=== PATIENT | male | born 1945 | race Caucasian/White ===

== ENCOUNTER → 2018-10-09 13:51 | Outpatient (CLI) | payer OTHER, SELFPAY | PROVIDERS: Family Provider Family Medicine; PCP Family Medicine; Visit Provider Urology | DX: R97.20 Elevated prostate specific antigen [PSA] (principal) | CPT/HCPCS: 36415; 84153 ==

== ENCOUNTER → 2018-11-14 11:08 | Outpatient (CLI) | payer OTHER, SELFPAY ==
--- NOTE | 2018-11-14 11:09 | DI.US.S_ITS ---
PROCEDURE: US ABD AORTA ANEURYSM SCREEN INDICATIONS: FORMER SMOKER TECHNIQUE: Real time scanning was performed of the aorta and iliac arteries, with image documentation. COMPARISON: None. FINDINGS: Aorta: Proximal aortic diameter measures 2.6 cm. Mid-aorta measures 1.7 cm. Distal aortic diameter is 1.6 cm. Iliac arteries: Right common iliac artery measures 1.0 cm. Left common iliac artery measures 1.0 cm. IMPRESSION: 1. Mild ectasia of the proximal abdominal aorta. 5 your sonographic surveillance recommended. 2. No ectasia or aneurysmal dilatation of iliac arteries. Dictated by: Serena Mott M.D. on 11/14/2018 at 13:22 Approved by: Serena Mott M.D. on 11/14/2018 at 13:24
== END ==
PROVIDERS: Family Provider Family Medicine; PCP Family Medicine; Visit Provider Student in an Organized Health Care Education/Training Program
DX: Z13.6 Encounter for screening for cardiovascular disorders (principal); I77.811 Abdominal aortic ectasia; Z87.891 Personal history of nicotine dependence
CPT/HCPCS: 76706

== ENCOUNTER → 2019-10-15 07:54 | Outpatient (CLI) | payer MEDICARE, SELFPAY ==
[2019-10-15 10:13] LABS: Blood Urea Nitrogen 28 mg/dL (9-20); Calcium 9.9 mg/dL (8.4-10.2); Carbon Dioxide 32 mmol/L (22-32); Chloride 99 mmol/L (98-107); Estimated Glomerular Filt Rate > 60.0 mL/min (>60); Glucose 128 mg/dL (80-110); HEMOLYSIS < 15 (0-50); Potassium 4.1 mmol/L (3.4-5.1); Sodium 139 mmol/L (137-145)
[2019-10-15 10:28] LABS: Vitamin D 25 Hydroxy (D3) 37.2 ng/mL (30.0-100.0)
[2019-10-15 10:44] LABS: Prostate Specific Antigen 2.14 ng/mL (0.10-4.00)
== END ==
PROVIDERS: PCP Student in an Organized Health Care Education/Training Program; Visit Provider Urology
DX: R97.20 Elevated prostate specific antigen [PSA] (principal); I10 Essential (primary) hypertension; R73.9 Hyperglycemia, unspecified; E55.9 Vitamin D deficiency, unspecified
CPT/HCPCS: 36415; 80048; 82306; 84153

== ENCOUNTER → 2021-02-21 15:22 | Outpatient (CLI) | payer MEDICARE, SELFPAY ==
[2021-02-21 17:25] LABS: HEMOLYSIS < 15 (0-50); Potassium 3.7 mmol/L (3.4-5.1)
[2021-02-21 17:26] LABS: BUN Creatinine Ratio 29.9 (6-22); Blood Urea Nitrogen 26 mg/dL (9-20); Calcium 9.8 mg/dL (8.4-10.2); Carbon Dioxide 30 mmol/L (22-32); Chloride 101 mmol/L (98-107); Estimated Glomerular Filt Rate > 60.0 mL/min (>60); Glucose 110 mg/dL (80-110); Sodium 138 mmol/L (137-145)
== END ==
PROVIDERS: PCP Student in an Organized Health Care Education/Training Program; Referring Provider Urology; Visit Provider Urology
DX: R97.20 Elevated prostate specific antigen [PSA] (principal); I10 Essential (primary) hypertension
CPT/HCPCS: 36415; 80048; 84153

== ENCOUNTER → 2022-05-10 07:28 | Outpatient (CLI) | payer MEDICARE, SELFPAY ==
[2022-05-10 09:45] LABS: BUN Creatinine Ratio 28.4 (6-22); Blood Urea Nitrogen 25 mg/dL (9-20); Calcium 9.4 mg/dL (8.4-10.2); Carbon Dioxide 31 mmol/L (22-32); Chloride 99 mmol/L (98-107); Cholesterol 160 mg/dL (140-199); Estimated Glomerular Filt Rate > 60 mL/min (>60); Glucose 154 mg/dL (80-110); HDL Cholesterol 48 mg/dL (40-60); HEMOLYSIS < 15 (0-50); LDL Cholesterol Calculated 97 mg/dL (<100); Potassium 3.8 mmol/L (3.4-5.1); Sodium 137 mmol/L (137-145); Triglycerides 73 mg/dL (35-150)
[2022-05-10 10:15] LABS: Prostate Specific Antigen 1.83 ng/mL (0.10-4.00)
== END ==
PROVIDERS: PCP Student in an Organized Health Care Education/Training Program; Referring Provider Student in an Organized Health Care Education/Training Program; Visit Provider Student in an Organized Health Care Education/Training Program
DX: E78.00 Pure hypercholesterolemia, unspecified (principal); R97.20 Elevated prostate specific antigen [PSA]; I10 Essential (primary) hypertension
CPT/HCPCS: 36415; 80048; 80061; 84153

== ENCOUNTER → 2024-07-02 07:39 | Outpatient (CLI) | payer MEDICARE, SELFPAY ==
--- NOTE | 2024-07-02 07:41 | DI.ECHO.S_ITS ---
[facility] : : [id number] : [place] : : [id number] : : Phone: [phone] Echocardiogram Report + + :Name: NOEL GARCIA Study Date: 07/02/2024 Height: 69 in : :Hospital ReadingLocation: Weight: 172 lb : : Gender: Male BSA: 1.9 m2 : :: 1945 Age: 79 yrs BP: 142/72 mmHg: :Reason For Study: Chest pain : :Ordering Physician: ROMERO, : :MISTY Performed By: Rosalinda Lehman : :Referring: MISTY JASSO : + + Interpretation Summary The left ventricle is normal in size. The left ventricular ejection fraction is normal. The ejection fraction is estimated to be 60-65%. The right ventricle is normal in size and function. The aortic valve is moderately calcified. There is moderately reduced leaflet mobility. The peak aortic velocity is 2.7 m/sec. The aortic valve mean gradient is 16 mmHg. The calculated aortic valve area is 1.5 cm2. sev ratio: 0.33 There is mild to moderate aortic stenosis. There is mild to moderate aortic regurgitation. There is aortic root sclerosis/calcification. Procedure: A two-dimensional transthoracic echocardiogram with color flow and Doppler was performed. The study quality was technically adequate. There is no prior echocardiogram noted for this patient. The heart rate ranged between 70-73 bpm during the study. The patient was in normal sinus rhythm during the exam. Left Ventricle: The left ventricle is normal in size. Proximal septal thickening is noted. There is no thrombus. The ejection fraction is estimated to be 60-65%. The left ventricular ejection fraction is normal. There are no focal wall motion abnormalities. Diastolic parameters suggest a relaxation abnormality of the left ventricle, consistent with probable normal filling pressures. Right Ventricle: The right ventricle is normal in size and function. Atria: The left atrial size is normal. Right atrial size is normal. The interatrial septum grossly appears intact with no obvious evidence for an atrial septal defect. Lipomatous hypertrophy of the interatrial septum is noted. Mitral Valve: The mitral valve leaflets appear mildly thickened, but open well. There is mild to moderate mitral annular calcification. There is mild mitral regurgitation. Aortic Valve: The aortic valve is moderately calcified. There is moderately reduced leaflet mobility. The aortic valve is not well visualized. The aortic valve area is 1.5 centimeters squared by planimetry. The calculated aortic valve area is 1.5 cm2. The peak aortic velocity is 2.7 m/sec. The aortic valve mean gradient is 16 mmHg. There is mild to moderate aortic stenosis. There is mild to moderate aortic regurgitation. Tricuspid Valve: The tricuspid valve leaflets are thin and pliable. The right ventricular systolic pressure is estimated to be at least 27 mmHg based on an estimated right atrial pressure of 3 mm Hg. There is trace tricuspid regurgitation. Pulmonic Valve: The pulmonic valve leaflets are thin and pliable; valve motion is normal. There is no pulmonic valvular regurgitation. Great Vessels: The aortic root is normal size. There is aortic root sclerosis/calcification. The ascending aorta is normal in size. The aortic arch is normal in size. The IVC is of normal diameter and collapses greater than 50% with a sniff. This suggests a low right atrial pressure of 3 mm Hg. Pericardium/ Pleura There is no pericardial effusion. There is no pleural effusion. MMode/2D Measurements & Calculations LVIDd: 5.1 cm LVOT diam: 2.5 cm LVIDs: 2.5 cm Ao root diam: 3.7 cm FS: 50.8 % asc Aorta Diam: 3.5 cm EPSS: 0.81 cm Ao Arch Diam (Prox Trans): 3.0 cm IVSd: 0.97 cm LVPWd: 0.83 cm LV castrejon. diameter/BSA (cm/m^2): 2.6 LV sys. diameter/BSA (cm/m^2): 1.3 LA A2 area: 19.0 cm2 RA long axis: 5.0 cm LA A4 area: 21.0 cm2 RA area: 12.0 cm2 LA length (vol): 5.9 cm RA vol: 24.6 ml LA vol: 57.6 ml RA : 12.7 ml/m2 LA vol index: 29.7 ml/m2 IVC diam: 2.1 cm RVD1 (basal): 4.1 cm TAPSE: 2.2 cm Doppler Measurements & Calculations Ao V2 max: 272.4 cm/sec LVOT Max Pablo: 84.9 cm/sec Ao V2 mean: 187.2 cm/sec LV V1 max P.9 mmHg Ao max P.7 mmHg LV V1 VTI: 20.3 cm Ao mean P.3 mmHg BRANDT(I,D): 1.6 cm2 Ao V2 VTI: 61.5 cm BRANDT(V,D): 1.5 cm2 sev ratio: 0.33 BRANDT indexed to BSA (cm^2/m^2): 0.84 AI P1/2t: 482.3 msec AI dec slope: 204.9 cm/sec2 MV E max pablo: 71.9 cm/sec TR max pablo: 243.0 cm/sec MV A max pablo: 102.8 cm/sec TR max P.6 mmHg MV E/A: 0.70 PA V2 max: 76.6 cm/sec Med Peak E' Pablo: 4.9 cm/sec PA V2 mean: 54.7 cm/sec E/E' med: 14.6 PA mean P.3 mmHg Lat Peak E' Pablo: 4.2 cm/sec PA pr(Accel): 1.9 mmHg E/E' lat: 17.1 E/e' average: 15.8 MV dec time: 0.24 sec SV(LVOT): 99.9 ml Reading Physician:02:14 PM
--- NOTE | 2024-07-02 07:42 | DI.RAD.S_ITS ---
PROCEDURE: XR CHEST 2V INDICATIONS: CHEST PAIN WITH BREATHING TECHNIQUE: 2 views of the chest were acquired. COMPARISON: [facility], , CHEST 2 VIEW, 01/21/2017, 9:58. FINDINGS: Mild bilateral perihilar and lower lobe peribronchial thickening, some of which may be related expiratory result with mild bibasilar subsegmental atelectasis however bronchitis, viral infection, asthma or other process could be considered. Moderate calcifications of the aortic arch unchanged. Mild degenerative changes of the thoracic spine unchanged. No pneumothorax, no pleural effusion, no focal consolidation. IMPRESSION: Mild bilateral peribronchial thickening, as discussed above. If symptoms persist or worsen, CT could be performed. Dictated by: Steve Scruggs M.D. on 07/02/2024 at 12:12 Approved by: Steve Scruggs M.D. on 07/02/2024 at 12:16
--- NOTE | 2024-07-02 09:29 | EKG_ITS ---
[facility] [id number] [place] [address] Test Date: 2024-07-02 Pat Name: Clarence Jorgensen Department: Room: Gender: Male Medical Affairs Specialist: : 1945 Requested By: Order Number: [id number] Reading MD: Quentin Raza Measurements Intervals [place] Rate: 68 P: 100 SC: 188 QRS: 38 QRSD: 146 T: 23 QT: 458 QTc: 487 Interpretive Statements Sinus rhythm with marked sinus arrhythmia with occasional premature ventricular complexes Right bundle branch block Electronically Signed On 07-02-2024 19:52:17 PDT by Quentin Raza
== END ==
LOC: ECHO 07:40
PROVIDERS: PCP Internal Medicine; Referring Provider Internal Medicine; Visit Provider Internal Medicine
DX: I08.0 Rheumatic disorders of both mitral and aortic valves (principal); R07.1 Chest pain on breathing
CPT/HCPCS: 71046; 93005; 93306